=== PATIENT | male | born 1950 | race Caucasian/White ===

== ENCOUNTER → 2016-08-18 | Day surgery (SDC) | payer MEDICARE, OTHER ==
[~2016-08-18] VITALS: Ht 188 cm; Wt 76.7 kg
[~2016-08-18] MED LIST: ASPIRIN325 MG PO; DELTASONE5 MG PO; HUMIBID LA (MU600 MG PO; LACTINEX (FLORA1 TAB PO; LEVAQUIN 750 M750 MG PO; PROTONIX40 MG PO; PROVENTIL OR V6.7 GM INH; SYMBICORT 16010.2 GM INH; Z-PAK250 MG PO
== END ==
LOC: GPOC 08-09 11:00 → GEND 08-13 08:30
PROC: 0DB68ZZ Excision of Stomach, Via Natural or Artificial Opening Endoscopic (ICD-10-PCS; principal; 2016-08-18)
DX: K26.4 Chronic or unspecified duodenal ulcer with hemorrhage (principal); K44.9 Diaphragmatic hernia without obstruction or gangrene; Z87.891 Personal history of nicotine dependence; Z79.899 Other long term (current) drug therapy
CPT/HCPCS: J2001; J7030